=== PATIENT | male | born 1985 | race American Indian/Alaskan Native ===

== ENCOUNTER 2018-03-03 12:22 | Emergency (ER) | payer MEDICAID ==
[2018-03-03 13:16] VITALS: BP 129/87
--- NOTE | 2018-03-03 14:21 | XRay Report ---
LEFT FINGERS, 3 VIEWS History: Pain and deformity of the left thumb. Findings: An oblique mildly comminuted fracture is identified through the proximal phalanx of the left thumb. The remainder of the left fingers are partially imaged but grossly unremarkable. Diffuse soft tissue swelling of the thumb is also noted. Impression: Fracture, proximal phalanx, left thumb.
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
== END 2018-03-03 15:06 | disposition home or self-care (01) ==
LOC: ED 12:22
DX: S62.512A Displaced fracture of proximal phalanx of left thumb, initial encounter for closed fracture (principal); Z91.010 Allergy to peanuts; X58.XXXA Exposure to other specified factors, initial encounter; Y93.89 Activity, other specified; Y92.89 Other specified places as the place of occurrence of the external cause; Y99.8 Other external cause status

== ENCOUNTER 2018-05-04 11:54 | Emergency (ER) | payer SELFPAY ==
[2018-05-04 13:07] VITALS: BP 155/98
--- NOTE | 2018-05-04 14:42 | Emergency Department Report ---
ED Recheck HPI - General Chief Complaint: High BP Stated Complaint: HBP Time Seen by Provider: 05/04/18 14:35 Source: patient Mode of arrival: Ambulatory Limitations: No Limitations - History of Present Illness Initial Comments: Pt sent by PCP due to elevated BP, highest reading 155/111. Pt denies any complaints and states he was just there for an employment physical. MD Complaint: other (blood pressure check) -: Gradual Symptoms Since Prior Visit: no new symptoms Associated Symptoms: none - Related Data Previous Rx's Medication Instructions Recorded Last Taken Type HYDROcodone/APAP 5-325 [Mulvane 1 each PO QHS PRN #10 tablet 01/25/15 Unknown Rx 5/325] Ibuprofen [Motrin] 800 mg PO Q8H PRN #30 tablet 01/25/15 Unknown Rx Loratadine [Claritin] 10 mg PO DAILY #30 tablet 10/19/15 Unknown Rx Pseudoephed/Cod/Guaifen 5 ml PO Q6H PRN #90 bottle 10/19/15 Unknown Rx [Robitussin DAC 10-100-30Mg/5Ml] HYDROcodone/APAP 5-325 [Mulvane 1 each PO Q4HR PRN #12 tablet 03/03/18 Unknown Rx 5/325] Ibuprofen [Motrin] 800 mg PO Q8HR PRN #20 tablet 03/03/18 Unknown Rx Allergies Allergy/AdvReac Type Severity Reaction Status Date / Time peanut Allergy Unknown Verified 03/03/18 13:11 ED Review of Systems ROS: Stated complaint: HBP Other details as noted in HPI Comment: All other systems reviewed and negative ED Past Medical Hx - Past Medical History Hx Hypertension: Yes Additional medical history: Chlamydia - Surgical History Past Surgical History?: No - Social History Smoking Status: Never Smoker Substance Use Type: None - Medications Home Medications: Home Medications Medication Instructions Recorded Confirmed Last Taken Type HYDROcodone/APAP 5-325 [Mulvane 1 each PO QHS PRN #10 tablet 01/25/15 Unknown Rx 5/325] Ibuprofen [Motrin] 800 mg PO Q8H PRN #30 tablet 01/25/15 Unknown Rx Loratadine [Claritin] 10 mg PO DAILY #30 tablet 10/19/15 Unknown Rx Pseudoephed/Cod/Guaifen 5 ml PO Q6H PRN #90 bottle 10/19/15 Unknown Rx [Robitussin DAC 10-100-30Mg/5Ml] HYDROcodone/APAP 5-325 [M[place]vane 1 each PO Q4HR PRN #12 tablet 03/03/18 Unknown Rx 5/325] Ibuprofen [Motrin] 800 mg PO Q8HR PRN #20 tablet 03/03/18 Unknown Rx ED Physical Exam - General Limitations: No Limitations General appearance: alert, in no apparent distress - Head Head exam: Present: atraumatic, normocephalic - Eye Eye exam: Present: normal appearance, PERRL, EOMI - ENT ENT exam: Present: mucous membranes moist - Neck Neck exam: Present: normal inspection - Respiratory Respiratory exam: Present: normal lung sounds bilaterally. Absent: respiratory distress - Cardiovascular Cardiovascular Exam: Present: regular rate, normal rhythm. Absent: systolic murmur, diastolic murmur, rubs, gallop - GI/Abdominal GI/Abdominal exam: Present: soft, normal bowel sounds - Rectal Rectal exam: Present: deferred - Extremities Exam Extremities exam: Present: normal inspection - Back Exam Back exam: Present: normal inspection - Neurological Exam Neurological exam: Present: alert, oriented X3 - Psychiatric Psychiatric exam: Present: normal affect, normal mood - Skin Skin exam: Present: warm, dry, intact, normal color. Absent: rash ED Course Vital Signs 05/04/18 13:01 Temperature 98.6 F Pulse Rate 89 Respiratory 20 Rate Blood Pressure 155/98 O2 Sat by Pulse 95 Oximetry ED Recheck MDM - Differential Diagnosis HTN, transient elevated BP - Medical Decision Making Pt sent due to HTN, no history. Asymptomatic, BP 155/98 here. Benign exam. Advised simple BP monitoring and PCP follow up as there is no indication for emergent treatment of mildly elevated blood pressure at this time. Critical care attestation.: If time is entered above; I have spent that time in minutes in the direct care of this critically ill patient, excluding procedure time. ED Disposition Clinical Impression: Elevated BP without diagnosis of hypertension Disposition: DC-01 TO HOME OR SELFCARE Is pt being admited?: No Condition: Good Instructions: Heart Healthy Diet (ED), How to Take a Blood Pressure (ED), DASH Eating Plan (ED) Additional Instructions: Monitor your blood pressure and follow up with PCP next week for persistent readings above 140/90. Referrals: PRIMARY MD SHAQUILLE [Primary Care Provider] - 3-5 Days ARI OROURKE MD [Staff Physician] - 3-5 Days Forms: Work/School Release Form(ED) Time of Disposition: 14:40
== END 2018-05-04 14:51 | disposition home or self-care (01) ==
LOC: ED 11:54
DX: I10 Essential (primary) hypertension (principal); Z91.010 Allergy to peanuts
CPT/HCPCS: 99282

== ENCOUNTER 2018-05-06 07:06 | Emergency (ER) | payer SELFPAY ==
[2018-05-06 07:26] VITALS: BP 158/89
--- NOTE | 2018-05-06 07:58 | Emergency Department Report ---
- General Chief complaint: Earache Stated complaint: QTIP LODGED IN RT EAR Time Seen by Provider: 05/06/18 07:55 Source: patient Mode of arrival: Ambulatory Limitations: No Limitations - History of Present Illness Initial comments: Patient presented emergency room report that he has earache and that he thinks the end of the Q-tip came off and dislodged in his right ear. Pain distorted 10. He also states that he has a small bump to his right earlobe that has been there for over a year. He said it is painful to touch. Denies any fever or chills. Denies any drainage from ears. Patient said he tried to get the cotton tip out of his ears but he could not get so he came to the emergency room. Denies any loss of hearing. MD complaint: foreign body (cotton tip in right ear), other (skin changes to the right earlobe) Onset/Timin -: days(s) Tetanus Up to Date: yes Location: head (right ear) Severity: mild Severity scale (0 -10): 2 Quality: other (sore) Consistency: intermittent Improves with: none Worsens with: none Context: other (patient said he was using cotton tip to clean his right ear out and the cotton part came off in his right ear and he is unable to retrieve it) Associated symptoms: other (he reports that he has a lump to her is right earlobe for over a year) Treatments Prior to Arrival: other (attempted to remove ) - Related Data Previous Rx's Medication Instructions Recorded Last Taken Type HYDROcodone/APAP 5-325 [Merkel 1 each PO QHS PRN #10 tablet 01/25/15 Unknown Rx 5/325] Ibuprofen [Motrin] 800 mg PO Q8H PRN #30 tablet 01/25/15 Unknown Rx Loratadine [Claritin] 10 mg PO DAILY #30 tablet 10/19/15 Unknown Rx Pseudoephed/Cod/Guaifen 5 ml PO Q6H PRN #90 bottle 10/19/15 Unknown Rx [Robitussin DAC 10-100-30Mg/5Ml] HYDROcodone/APAP 5-325 [Merkel 1 each PO Q4HR PRN #12 tablet 03/03/18 Unknown Rx 5/325] Ibuprofen [Motrin] 800 mg PO Q8HR PRN #20 tablet 03/03/18 Unknown Rx Ibuprofen [Motrin] 600 mg PO Q8H PRN #12 tablet 05/06/18 Unknown Rx Neomy/Polymyx B/Hc (Otic) Soln 4 drops .ROUTE Q8H 7 Days #1 bottle 05/06/18 Unknown Rx [Cortisporin (Otic) Soln] cephALEXin [Keflex] 500 mg PO Q8HR 10 Days #30 cap 05/06/18 Unknown Rx Allergies Allergy/AdvReac Type Severity Reaction Status Date / Time peanut Allergy Unknown Verified 03/03/18 13:11 Abscess Boil HPI - HPI Chief Complaint: Earache Stated Complaint: QTIP LODGED IN RT EAR Time Seen by Provider: 05/06/18 07:55 Home Medications: Previous Rx's Medication Instructions Recorded Last Taken Type HYDROcodone/APAP 5-325 [Merkel 1 each PO QHS PRN #10 tablet 01/25/15 Unknown Rx 5/325] Ibuprofen [Motrin] 800 mg PO Q8H PRN #30 tablet 01/25/15 Unknown Rx Loratadine [Claritin] 10 mg PO DAILY #30 tablet 10/19/15 Unknown Rx Pseudoephed/Cod/Guaifen 5 ml PO Q6H PRN #90 bottle 10/19/15 Unknown Rx [Robitussin DAC 10-100-30Mg/5Ml] HYDROcodone/APAP 5-325 [Merkel 1 each PO Q4HR PRN #12 tablet 03/03/18 Unknown Rx 5/325] Ibuprofen [Motrin] 800 mg PO Q8HR PRN #20 tablet 03/03/18 Unknown Rx Ibuprofen [Motrin] 600 mg PO Q8H PRN #12 tablet 05/06/18 Unknown Rx Neomy/Polymyx B/Hc (Otic) Soln 4 drops .ROUTE Q8H 7 Days #1 bottle 05/06/18 Unknown Rx [Cortisporin (Otic) Soln] cephALEXin [Keflex] 500 mg PO Q8HR 10 Days #30 cap 05/06/18 Unknown Rx Allergies/Adverse Reactions: Allergies Allergy/AdvReac Type Severity Reaction Status Date / Time peanut Allergy Unknown Verified 03/03/18 13:11 ED Review of Systems ROS: Stated complaint: QTIP LODGED IN RT EAR Other details as noted in HPI Constitutional: denies: chills, fever ENT: ear pain, other (foreign body in right ear). denies: throat pain, dental pain, congestion Respiratory: denies: cough, shortness of breath, SOB with exertion, SOB at rest , wheezing Cardiovascular: denies: chest pain, palpitations Gastrointestinal: denies: nausea, vomiting Skin: other (she reports swelling to right earlobe that has been there for over a year). denies: rash, lesions Neurological: denies: headache, weakness, paresthesias ED Past Medical Hx - Past Medical History Previous Medical History?: Yes Hx Hypertension: Yes Additional medical history: Chlamydia - Surgical History Past Surgical History?: No - Family History Family history: hypertension - Social History Smoking Status: Never Smoker Substance Use Type: None - Medications Home Medications: Home Medications Medication Instructions Recorded Confirmed Last Taken Type HYDROcodone/APAP 5-325 [Merkel 1 each PO QHS PRN #10 tablet 01/25/15 Unknown Rx 5/325] Ibuprofen [Motrin] 800 mg PO Q8H PRN #30 tablet 01/25/15 Unknown Rx Loratadine [Claritin] 10 mg PO DAILY #30 tablet 10/19/15 Unknown Rx Pseudoephed/Cod/Guaifen 5 ml PO Q6H PRN #90 bottle 10/19/15 Unknown Rx [Robitussin DAC 10-100-30Mg/5Ml] HYDROcodone/APAP 5-325 [Merkel 1 each PO Q4HR PRN #12 tablet 03/03/18 Unknown Rx 5/325] Ibuprofen [Motrin] 800 mg PO Q8HR PRN #20 tablet 03/03/18 Unknown Rx Ibuprofen [Motrin] 600 mg PO Q8H PRN #12 tablet 05/06/18 Unknown Rx Neomy/Polymyx B/Hc (Otic) Soln 4 drops .ROUTE Q8H 7 Days #1 bottle 05/06/18 Unknown Rx [Cortisporin (Otic) Soln] cephALEXin [Keflex] 500 mg PO Q8HR 10 Days #30 cap 05/06/18 Unknown Rx ED Physical Exam - General Limitations: No Limitations General appearance: alert, in no apparent distress - Head Head exam: Present: atraumatic, normocephalic, normal inspection, other (normal exam) - Eye Eye exam: Present: normal appearance, PERRL, EOMI - ENT ENT exam: Present: normal orophraynx, mucous membranes moist, normal external ear exam (right EAC with white, knee foreign body and tragus tender to palpate where small indurated area pustule without any flexion.), other (bilateral nasal mucosa and bilateral maxillary and frontal sinuses normal exam). Absent: normal exam, TM's normal bilaterally (right EAC with some erythema and white cotton foreign object noted. I am able to see right TM which is normal. Left TM is also normal) - Neck Neck exam: Present: normal inspection, full ROM. Absent: tenderness, lymphadenopathy - Respiratory Respiratory exam: Present: normal lung sounds bilaterally. Absent: respiratory distress, chest wall tenderness - Cardiovascular Cardiovascular Exam: Present: regular rate, normal rhythm, normal heart sounds - Extremities Exam Extremities exam: Present: normal inspection, full ROM, normal capillary refill , other (No cce. + 2 pulses in all extremities, no neurovascular compromise). Absent: tenderness, pedal edema, joint swelling, calf tenderness - Neurological Exam Neurological exam: Present: alert, oriented X3, normal gait - Psychiatric Psychiatric exam: Present: normal affect, normal mood - Skin Skin exam: Present: warm, dry, intact, normal color. Absent: rash ED Course Vital Signs 05/06/18 07:23 Temperature 98 F Pulse Rate 75 Respiratory 16 Rate Blood Pressure 158/89 O2 Sat by Pulse 96 Oximetry - Reevaluation(s) Reevaluation #1: 05/06/18 17:43 Patient is stable throughout ED course. Please see procedure note for removal of foreign body from right ear - Foreign Body Removal Ear Location: ear canal (R) Foreign Body Suspected: other (cotton material) Foreign Body Removed: yes Foreign Body Removal Technique: irrigation Tympanic Membrane Intact: Yes (initially try the use of the gated clip without success) Patient Tolerated Procedure: no complications (minimal abrasion to right EAC without any disruption in tympanic membrane) Complications: pain (minimal) Additional Comments: Foreign body removed. Patient also with pustule to entrance of right ear canal. Tender to palpate without any induration. ED Medical Decision Making - Medical Decision Making This is a [id number] male patient here for removal of foreign body from right ear. Assessment/plan 1: Otitis externa from instrumentation and Will be placed on Corticosporin eardrops 2: Foreign body to right EAC-removed successfully. 3: Pustule/cellulitis to right ear-will be started on Keflex I discussed the patient diagnosis and treatment plan and I told him that he needs to apply warm compresses to affected area on right ear to facilitate then and drainage. I also instructed him that he needs to follow up with ear nose and throat at some point. I discussed the patient that he needs to follow-up at [facility] status post foreign body right ear canal and otitis externa right ear. Patient agrees and discharged home in stable condition with prescription for Keflex, Corticosporin otic and Motrin. Critical care attestation.: If time is entered above; I have spent that time in minutes in the direct care of this critically ill patient, excluding procedure time. ED Disposition Clinical Impression: Otalgia, right ear, Cellulitis of right earlobe Otitis externa of right ear Qualifiers: Otitis externa type: unspecified type Chronicity: acute Qualified Code(s): H60.501 - Unspecified acute noninfective otitis externa, right ear Foreign body in right ear Qualifiers: Encounter type: initial encounter Qualified Code(s): T16.1XXA - Foreign body in right ear, initial encounter Disposition: TO HOME OR SELFCARE Is pt being admited?: No Does the pt Need Aspirin: No Condition: Stable Instructions: Cellulitis (ED), Otitis Externa (ED), Ear Foreign Body (ED), Earache (ED) Additional Instructions: Please follow up with ear nose and throat if needed Take antibiotic as prescribed Prescriptions: cephALEXin [Keflex] 500 mg PO Q8HR 10 Days #30 cap Ibuprofen [Motrin] 600 mg PO Q8H PRN #12 tablet PRN Reason: Pain Neomy/Polymyx B/Hc (Otic) Soln [Cortisporin (Otic) Soln] 4 drops .ROUTE Q8H 7 Days #1 bottle Referrals: FRANNIE TURNER MD [Staff Physician] - 05/10/18 [facility] [Outside] - 05/10/18 Forms: Work/School Release Form(ED)
== END 2018-05-06 08:34 | disposition home or self-care (01) ==
LOC: ED 07:06
DX: T16.1XXA Foreign body in right ear, initial encounter (principal); H60.501 Unspecified acute noninfective otitis externa, right ear; H60.11 Cellulitis of right external ear; I10 Essential (primary) hypertension; Z91.010 Allergy to peanuts; Y93.89 Activity, other specified; Y99.8 Other external cause status; Y92.89 Other specified places as the place of occurrence of the external cause
CPT/HCPCS: 99282

== ENCOUNTER 2018-08-08 14:53 | Emergency (ER) | payer SELFPAY ==
[2018-08-08 15:01] VITALS: BP 167/103
[2018-08-08] MEDS ORDERED: IBUPROFEN PO ONE (15:40)
--- NOTE | 2018-08-08 15:54 | Emergency Department Report ---
ED ENT HPI - General Chief complaint: Dental/Oral Stated complaint: CRACKED TOOTH/TOOTHACHE Time Seen by Provider: 08/08/18 15:25 Source: patient Mode of arrival: Ambulatory Limitations: No Limitations - History of Present Illness Initial comments: This is a 32-year-old male nontoxic, well nourished in appearance, no acute signs of distress presents to the ED with c/o of left upper toothache months. Patient denies following up with a dentist. Patient stated that pain radiates from his job to his left side of head. Patient otherwise denies any head trauma. Patient describes toothache as aching level of 8 out of 10. Patient denies any facial swelling. Patient denies any numbness, tingling, fever, chills, headache, stiff neck, abdominal pain, chest pain, shortness of breath. Patient denies any drug allergies or significant past medical history. MD complaint: tooth pain -: month(s) Location: tooth # 1 - pain here Severity: mild Severity scale (0 -10): 8 Quality: aching Consistency: constant Improves with: none Worsens with: none Context- Dental: history of dental caries, poor dental care Associated Symptoms: gum swelling, toothache. denies: fever, cough, pain with swallowing, sore throat, tinnitus, hearing loss, discharge from ear, rhinorrhea - Related Data Previous Rx's Medication Instructions Recorded Last Taken Type HYDROcodone/APAP 5-325 [[place] 1 each PO QHS PRN #10 tablet 01/25/15 Unknown Rx 5/325] Ibuprofen [Motrin] 800 mg PO Q8H PRN #30 tablet 01/25/15 Unknown Rx Loratadine [Claritin] 10 mg PO DAILY #30 tablet 10/19/15 Unknown Rx Pseudoephed/Cod/Guaifen 5 ml PO Q6H PRN #90 bottle 10/19/15 Unknown Rx [Robitussin DAC 10-100-30Mg/5Ml] HYDROcodone/APAP 5-325 [[place] 1 each PO Q4HR PRN #12 tablet 03/03/18 Unknown Rx 5/325] Ibuprofen [Motrin] 800 mg PO Q8HR PRN #20 tablet 03/03/18 Unknown Rx Ibuprofen [Motrin] 600 mg PO Q8H PRN #12 tablet 05/06/18 Unknown Rx Neomy/Polymyx B/Hc (Otic) Soln 4 drops .ROUTE Q8H 7 Days #1 bottle 05/06/18 Unknown Rx [Cortisporin (Otic) Soln] cephALEXin [Keflex] 500 mg PO Q8HR 10 Days #30 cap 05/06/18 Unknown Rx Acetaminophen/Codeine [Tylenol 1 tab PO Q6H PRN #12 tab 08/08/18 Unknown Rx /Codeine # 3 tab] Amoxicillin/K Clav Tab [Augmentin 1 tab PO Q12HR #20 tab 08/08/18 Unknown Rx 875 mg] Chlorhexidine Mouthwash [Peridex] 15 ml MM BID #1 bottle 08/08/18 Unknown Rx Ibuprofen [Motrin] 600 mg PO Q8H PRN #20 tablet 08/08/18 Unknown Rx Allergies Allergy/AdvReac Type Severity Reaction Status Date / Time peanut Allergy Unknown Verified 03/03/18 13:11 ED Dental HPI - General Chief complaint: Dental/Oral Stated complaint: CRACKED TOOTH/TOOTHACHE Time Seen by Provider: 08/08/18 15:25 Source: patient Mode of arrival: Ambulatory Limitations: No Limitations - Related Data Previous Rx's Medication Instructions Recorded Last Taken Type HYDROcodone/APAP 5-325 [[place] 1 each PO QHS PRN #10 tablet 01/25/15 Unknown Rx 5/325] Ibuprofen [Motrin] 800 mg PO Q8H PRN #30 tablet 01/25/15 Unknown Rx Loratadine [Claritin] 10 mg PO DAILY #30 tablet 10/19/15 Unknown Rx Pseudoephed/Cod/Guaifen 5 ml PO Q6H PRN #90 bottle 10/19/15 Unknown Rx [Robitussin DAC 10-100-30Mg/5Ml] HYDROcodone/APAP 5-325 [[place] 1 each PO Q4HR PRN #12 tablet 03/03/18 Unknown Rx 5/325] Ibuprofen [Motrin] 800 mg PO Q8HR PRN #20 tablet 03/03/18 Unknown Rx Ibuprofen [Motrin] 600 mg PO Q8H PRN #12 tablet 05/06/18 Unknown Rx Neomy/Polymyx B/Hc (Otic) Soln 4 drops .ROUTE Q8H 7 Days #1 bottle 05/06/18 Unknown Rx [Cortisporin (Otic) Soln] cephALEXin [Keflex] 500 mg PO Q8HR 10 Days #30 cap 05/06/18 Unknown Rx Acetaminophen/Codeine [Tylenol 1 tab PO Q6H PRN #12 tab 08/08/18 Unknown Rx /Codeine # 3 tab] Amoxicillin/K Clav Tab [Augmentin 1 tab PO Q12HR #20 tab 08/08/18 Unknown Rx 875 mg] Chlorhexidine Mouthwash [Peridex] 15 ml MM BID #1 bottle 08/08/18 Unknown Rx Ibuprofen [Motrin] 600 mg PO Q8H PRN #20 tablet 08/08/18 Unknown Rx Allergies Allergy/AdvReac Type Severity Reaction Status Date / Time peanut Allergy Unknown Verified 03/03/18 13:11 ED Review of Systems ROS: Stated complaint: CRACKED TOOTH/TOOTHACHE Other details as noted in HPI Constitutional: denies: chills, fever Eyes: denies: eye pain, eye discharge, vision change ENT: dental pain. denies: ear pain, throat pain Respiratory: denies: cough, shortness of breath, wheezing Cardiovascular: denies: chest pain, palpitations Endocrine: no symptoms reported Gastrointestinal: denies: abdominal pain, nausea, diarrhea Genitourinary: denies: urgency, dysuria Musculoskeletal: denies: back pain, joint swelling, arthralgia Skin: denies: rash, lesions Neurological: denies: headache, weakness, paresthesias Psychiatric: denies: anxiety, depression Hematological/Lymphatic: denies: easy bleeding, easy bruising ED Past Medical Hx - Past Medical History Previous Medical History?: No Hx Hypertension: Yes Additional medical history: Chlamydia - Surgical History Past Surgical History?: No - Social History Smoking Status: Never Smoker Substance Use Type: Alcohol - Medications Home Medications: Home Medications Medication Instructions Recorded Confirmed Last Taken Type HYDROcodone/APAP 5-325 [[place] 1 each PO QHS PRN #10 tablet 01/25/15 Unknown Rx 5/325] Ibuprofen [Motrin] 800 mg PO Q8H PRN #30 tablet 01/25/15 Unknown Rx Loratadine [Claritin] 10 mg PO DAILY #30 tablet 10/19/15 Unknown Rx Pseudoephed/Cod/Guaifen 5 ml PO Q6H PRN #90 bottle 10/19/15 Unknown Rx [Robitussin DAC 10-100-30Mg/5Ml] HYDROcodone/APAP 5-325 [[place] 1 each PO Q4HR PRN #12 tablet 03/03/18 Unknown Rx 5/325] Ibuprofen [Motrin] 800 mg PO Q8HR PRN #20 tablet 03/03/18 Unknown Rx Ibuprofen [Motrin] 600 mg PO Q8H PRN #12 tablet 05/06/18 Unknown Rx Neomy/Polymyx B/Hc (Otic) Soln 4 drops .ROUTE Q8H 7 Days #1 bottle 05/06/18 Unknown Rx [Cortisporin (Otic) Soln] cephALEXin [Keflex] 500 mg PO Q8HR 10 Days #30 cap 05/06/18 Unknown Rx Acetaminophen/Codeine [Tylenol 1 tab PO Q6H PRN #12 tab 08/08/18 Unknown Rx /Codeine # 3 tab] Amoxicillin/K Clav Tab [Augmentin 1 tab PO Q12HR #20 tab 08/08/18 Unknown Rx 875 mg] Chlorhexidine Mouthwash [Peridex] 15 ml MM BID #1 bottle 08/08/18 Unknown Rx Ibuprofen [Motrin] 600 mg PO Q8H PRN #20 tablet 08/08/18 Unknown Rx ED Physical Exam - General Limitations: No Limitations General appearance: alert, in no apparent distress - Head Head exam: Present: atraumatic, normocephalic - Expanded ENT Exam Expanded Mouth exam: Present: normal external inspection. Absent: drooling, trismus, muffled voice Teeth exam: Present: dental caries, fractured tooth #, dental tenderness #, gingival enlargement, other (no facial swelling) Throat exam: Positive: other (uvula midline). Negative: tonsillar erythema, tonsillomegaly, tonsillar exudate, R peritonsillar mass, L peritonsillar mass - Respiratory Respiratory exam: Present: respiratory distress - Extremities Exam Extremities exam: Present: normal inspection, full ROM - Back Exam Back exam: Present: normal inspection, full ROM - Neurological Exam Neurological exam: Present: alert, oriented X3 - Psychiatric Psychiatric exam: Present: normal affect, normal mood - Skin Skin exam: Present: warm, dry, intact, normal color. Absent: rash ED Course Vital Signs 08/08/18 14:59 Temperature 97.4 F L Pulse Rate 62 Respiratory 18 Rate Blood Pressure 167/103 O2 Sat by Pulse 96 Oximetry - Reevaluation(s) Reevaluation #1: 08/08/18 15:54 Patient is speaking in full sentences with no signs of distress noted. Critical care attestation.: If time is entered above; I have spent that time in minutes in the direct care of this critically ill patient, excluding procedure time. ED Disposition Clinical Impression: Dental caries, Gingivitis Disposition: DC- TO HOME OR SELFCARE Is pt being admited?: No Does the pt Need Aspirin: No Condition: Stable Instructions: Dental Caries (ED), Gingivitis (ED), Acetaminophen/Codeine (By mouth) Additional Instructions: Follow-up with a primary care doctor in 3-5 days or if symptoms worsen and c ontinue return to emergency room as soon as possible. Do not operate any machinery while taking Tylenol with codeine as this may cause drowsiness. Prescriptions: Acetaminophen/Codeine [Tylenol /Codeine # 3 tab] 1 tab PO Q6H PRN #12 tab PRN Reason: Pain , Severe (7-10) Amoxicillin/K Clav Tab [Augmentin 875 mg] 1 tab PO Q12HR #20 tab Chlorhexidine Mouthwash [Peridex] 15 ml MM BID #1 bottle Ibuprofen [Motrin] 600 mg PO Q8H PRN #20 tablet PRN Reason: Pain Referrals: PRIMARY CARE, [Primary Care Provider] - 3-5 Days JENI BONDS MD [Staff Physician] - 3-5 Days [facility] [Outside] - 3-5 Days Forms: Work/School Release Form(ED)
== END 2018-08-08 16:15 | disposition home or self-care (01) ==
LOC: ED 14:53
DX: K02.9 Dental caries, unspecified (principal); K05.10 Chronic gingivitis, plaque induced; I10 Essential (primary) hypertension
CPT/HCPCS: 99282

== ENCOUNTER 2020-01-22 17:05 | Emergency (ER) | payer OTHER ==
--- NOTE | 2020-01-22 19:00 | Emergency Department Report ---
Blank Doc - Documentation Documentation: 34-year-old male that presents with headache and HTN. This initial assessment/diagnostic orders/clinical plan/treatment(s) is/are subject to change based on patient's health status, clinical progression and re- assessment by fellow clinical providers in the ED. Further treatment and workup at subsequent clinical providers discretion. Patient/guardians urged not to elope from the ED as their condition may be serious if not clinically assessed and managed. Initial orders include: 1- Patient sent to [facility] for further evaluation and treatment 2- CT head
--- NOTE | 2020-01-22 20:11 | Cat Scan Report ---
CT head without contrast INDICATION : Headache with hypertension. TECHNIQUE: Axial imaging performed from the skull apex through the skull base without the use of con trast. All CT examinations performed at this facility utilize dose modulation, iterative reconstruct ion or weight-based dosing, when appropriate, to reduce radiation dose to as low as reasonably achiev able. COMPARISON: None FINDINGS: No acute intracranial hemorrhage or parenchymal abnormality. Ventricles are normal in si ze and appear symmetric. Soft tissues including the orbits appear normal. No acute osseous abnorm ality. Sinuses and mastoid air cells are clear. IMPRESSION: No acute abnormality. Signer Name: Dustin Lucas MD Signed: 01/22/2020 8:07 PM Workstation Name: [id number]
[2020-01-22 20:52] VITALS: BP 151/105
--- NOTE | 2020-01-22 21:28 | Emergency Department Report ---
Chief Complaint: High BP Stated Complaint: HBP Time Seen by Provider: 01/22/20 18:58 - HPI History of Present Illness: 34-year-old -[place] male presents to the emergency room complaining he has high blood pressure. Patient reports he is having a headache that has responded to naproxen. Patient denies any chest pain or shortness of breath. In review of patient's chart patient has had elevated blood pressure since 2019 and even higher at 175/113. Patient reports he does not have a primary care provider at this time. - Exam Vital Signs: Vital Signs 01/22/20 01/22/20 01/22/20 17:13 19:02 20:35 Temperature 98.2 F 98.6 F Pulse Rate 80 68 Respiratory 18 16 Rate Blood Pressure 159/105 151/105 Blood Pressure 155/107 [Left] O2 Sat by Pulse 98 96 Oximetry Physical Exam: Gen: alert oriented NAD Cardic: regular rate and rhythm no murmurs appreciated Resp: Clear to auscultation bilateral no wheezing no rales or rhonchi. Abdomen: Soft nontender nondistended normal bowel sounds. MSE screening note: Focused history and physical exam performed. Due to findings the following was ordered: 34-year-old -[place] male presents to the emergency room complaining he has high blood pressure. Patient reports he is having a headache that has responded to naproxen. Patient denies any chest pain or shortness of breath. In review of patient's chart patient has had elevated blood pressure since 2018 and even higher at 175/113. Patient reports he does not have a primary care provider at this time. It was reported to patient in 2018 that he had elevated blood pressure and that he needed to follow-up with a primary care provider. Patient is requesting a work excuse ED Disposition for MSE Clinical Impression: Hypertension Disposition: Z-07 MED SCREENING EXAM-LEFT Is pt being admited?: No Does the pt Need Aspirin: No Condition: Stable Instructions: Hypertension (ED) Additional Instructions: Please follow-up with a primary care provider I have listed their information below for your convenience. Referrals: LISA CORBIN MD [Primary Care Provider] - 3-5 Days ROMA PRYOR MD [Staff Physician] - 3-5 Days [facility] [Provider Group] - 3-5 Days Forms: Work/School Release Form(ED)
== END 2020-01-22 21:56 | disposition left against medical advice (07) ==
LOC: ED 17:05
DX: I10 Essential (primary) hypertension (principal); R51 Headache; Z53.21 Procedure and treatment not carried out due to patient leaving prior to being seen by health care provider
CPT/HCPCS: 70450